=== PATIENT | female | born 1965 | race Caucasian/White ===

== ENCOUNTER 2022-03-21 02:16 | Emergency (ER) | payer OTHER ==
[~2022-03-21] VITALS: Ht 165.1 cm; Wt 85.7 kg
[~2022-03-21 02:16] MED LIST: HYDR-5122 PO; PHEN-1900 PO
--- NOTE | 2022-03-21 02:25 | NUR ---
TO BED AMBULATORY
[2022-03-21] MEDS ORDERED: ACETAMINOPHEN EXTRA STRENGTH 500 MG TAB PO ONE (02:40)
--- NOTE | 2022-03-21 03:05 | NUR ---
PT TO CT VIA W/C.
[2022-03-21] MEDS ORDERED: ATA25 PO (03:26)
--- NOTE | 2022-03-21 04:30 | NUR ---
PATIETN RESTING IN BED. RQ LIGHTS TO BE OFF. BED LOW AND LOCKED. SIDE RAIL UP X1 FOR SAFETY. ALL NEEDS MET.
--- NOTE | 2022-03-21 04:45 | NUR ---
Patient being evaluated by physician at bedside.
[2022-03-21 05:02] VITALS: BP 130/66
--- NOTE | 2022-03-21 05:23 | NUR ---
Patient discharged with v/s stable. Written and verbal after care instructions given and explained. Patient verbalized understanding. Ambulatory with steady gait. All questions addressed prior to discharge. Advised to follow up with PMD.
== END 2022-03-21 05:23 | disposition home or self-care (01) ==
LOC: MED 02:16
DX: S01.01XA Laceration without foreign body of scalp, initial encounter (principal); W18.30XA Fall on same level, unspecified, initial encounter; Y93.89 Activity, other specified; Y92.89 Other specified places as the place of occurrence of the external cause; Y99.8 Other external cause status
CPT/HCPCS: 70450; 90471; 90715; 99284

== ENCOUNTER 2022-06-18 20:14 | Emergency (ER) | payer OTHER ==
[~2022-06-18] VITALS: Ht 152.4 cm; Wt 86.2 kg
[2022-06-18 20:20] VITALS: BP 170/90
--- NOTE | 2022-06-18 20:23 | NUR ---
TO LOBBY A/W BED AMBULATORY
[2022-06-18 22:08] VITALS: BP 156/77
--- NOTE | 2022-06-18 22:08 | NUR ---
PT TAKEN TO BED 2
--- NOTE | 2022-06-18 22:08 | NUR ---
PT DENIES N/V/D; SKIN IS INTACT, PINK/WARM/DRY but periorbital facial redness w/ possible orbital cellulitis, sclera slightly jaundice; AAOX4, PERRL per patient positive drainage from eyes, WITH EVEN AND STEADY GAIT; LUNGS CLEAR BL, BREATHING UNLABORED; HR EVEN AND REGULAR, BL PERIPHERAL PULSES PRESENT; BS ACTIVE X4, NO TENDERNESS TO PALPATION, distended abd w/ (+) HEPATOSPLENOMEGALLY PALPATED, RESONANT TO PERCUSSION; PT DENIES ANY FEVER, CP, SOB, OR COUGH AT THIS TIME; PT STATES 0/10 PAIN AT THIS TIME; VSS; PATIENT POSITIONED FOR COMFORT; HOB ELEVATED; BEDRAILS UP X2; BED DOWN.
--- NOTE | 2022-06-18 22:30 | NUR ---
MD Duarte at bedside
== END 2022-06-18 22:53 | disposition home or self-care (01) ==
LOC: MED 20:14
DX: H10.13 Acute atopic conjunctivitis, bilateral (principal)
CPT/HCPCS: 99282

== ENCOUNTER 2022-09-19 14:06 | Emergency (ER) | payer OTHER ==
[~2022-09-19] VITALS: Ht 147.3 cm; Wt 72.6 kg
[2022-09-19 14:08] VITALS: BP 150/78
--- NOTE | 2022-09-19 14:15 | NUR ---
pt cleaned and soiled clothing was removed and placed in belongings bag
[2022-09-19] MEDS ORDERED: NACL 0.9% 1,000 ML IV ONE (14:35)
--- NOTE | 2022-09-19 15:12 | NUR ---
Patient appears to be resting comfortably in bed. Vital Signs within normal limits. Respirations even and unlabored.
--- NOTE | 2022-09-19 15:18 | NUR ---
called mother janell ([phone]), no answer at this time
--- NOTE | 2022-09-19 16:01 | NUR ---
IV removed, catheter intact and site benign. Applied folded 4x4 gauze and tape to stop bleeding.
--- NOTE | 2022-09-19 16:06 | NUR ---
pt changed into new clothes brought by mother upon reuqest, made aware that old clothes were soiled, bra, shirt and phone were placed in bag.
[2022-09-19 16:07] VITALS: BP 150/78
--- NOTE | 2022-09-19 16:07 | NUR ---
Patient discharged with v/s stable. Written and verbal after care instructions given and explained. Patient verbalized understanding. Ambulatory with mother, steady gait. All questions addressed prior to discharge. Advised to follow up with PMD.
== END 2022-09-19 16:07 | disposition home or self-care (01) ==
LOC: MED 14:06
DX: R56.9 Unspecified convulsions (principal); Z79.82 Long term (current) use of aspirin; Z79.899 Other long term (current) drug therapy
CPT/HCPCS: 96360; 99283; J7030